=== PATIENT | female | born 1955 | race Caucasian/White ===

== ENCOUNTER 2022-01-16 07:54 | Day surgery (SDC) | payer MEDICAID ==
[2022-01-14 11:51] LABS: COVID AG,FIA SOURCE NASAL SWAB
[~2022-01-16] VITALS: Ht 149.9 cm; Wt 63.6 kg
[~2022-01-16 07:54] MED LIST: SODIUM CHLORIDE 0.9% 1,000 ML ONE
[2022-01-16] MEDS ORDERED: LIDOCAINE/PF 2% 5 ML SYRINGE IVP ONE (07:55)
[2022-01-16] MEDS ORDERED: PROPOFOL 1% 20 ML VIAL IVP ONE (07:55)
[2022-01-16] MEDS ORDERED: SODIUM CHLORIDE 0.9% 1,000 ML IV ONE (08:00)
[2022-01-16] MEDS ORDERED: RIFA300C36 PO ×2 (08:20→08:21)
[2022-01-16] MEDS ORDERED: METF-1211 PO (08:20)
[2022-01-16] MEDS ORDERED: ATOR20TA86 PO (08:20)
[2022-01-16] MEDS ORDERED: LEVO25TA9 PO (08:20)
[2022-01-16 08:51] LABS: GLUCOMETER DEV NAME(LOC) SDS.; GLUCOSE,POINT OF CARE 102 MG/DL (70-110)
[2022-01-16] MEDS ORDERED: OXYGEN THERAPY IH SCH (10:15)
== END 2022-01-16 11:20 | disposition home or self-care (01) ==
LOC: SURGERY 07:54
PROVIDERS: ATTEND Specialist
DX: Z12.11 Encounter for screening for malignant neoplasm of colon (principal); D12.5 Benign neoplasm of sigmoid colon; I10 Essential (primary) hypertension; Z20.822 Contact with and (suspected) exposure to COVID-19; Z79.899 Other long term (current) drug therapy; Z83.3 Family history of diabetes mellitus
CPT/HCPCS: 87426; 45380; 45385; 82962; C9803; C1769; J2704; J3490; J7030